=== PATIENT | female | born 1995 | race Caucasian/White ===

== ENCOUNTER 2020-10-03 21:57 | Emergency (ER) | payer OTHER ==
[~2020-10-03 21:57] MED LIST: COLACE 100MG C100 MG PO; IBUPROFEN600 MG PO; LORTAB 5-325 M1 EACH PO
[2020-10-04] MEDS ORDERED: MEDROL DOSEPAK 24 MG PO (01:19)
[2020-10-04] MEDS ORDERED: EPIPEN 2-P0.3 MG/0.3 INJ (01:19)
[2020-10-04] MEDS ORDERED: PEPCID40 MG PO (01:19)
[2020-10-04] MEDS ORDERED: CLARITIN10 M2 PO (01:19)
== END 2020-10-04 01:25 | disposition home or self-care (01) ==
LOC: ER1 21:57
DX: T78.40XA Allergy, unspecified, initial encounter (principal); R06.02 Shortness of breath; R22.0 Localized swelling, mass and lump, head; Z88.0 Allergy status to penicillin; Z88.7 Allergy status to serum and vaccine
CPT/HCPCS: 96374; 96375; 99283; J1100; J1200